=== PATIENT | female | born 1955 | race Caucasian/White ===

== ENCOUNTER → 2016-12-29 | Outpatient (CLI) | payer OTHER ==
[2016-12-29 08:42] LABS: ABSOLUTE BASOPHILS # (AUTO) 0.1 10^3/uL (0.0-0.2); ABSOLUTE EOSINOPHILS # (AUTO) 0.4 10^3/uL (0.0-0.6); ABSOLUTE LYMPHOCYTES (AUTO) 1.5 10^3/uL (0.5-4.7); ABSOLUTE MONOCYTES (AUTO) 0.4 10^3/uL (0.1-1.4); ABSOLUTE NEUT (AUTO) 3.8 10^3/uL (1.7-8.2); BASOPHILS % (AUTO) 1.2 % (0-2); EOSINOPHILS % (AUTO) 6.1 % (0-6); HEMATOCRIT 41.5 % (36.0-47.0); HEMOGLOBIN 13.6 g/dL (12.0-15.5); HGB HCT DIFFERENCE -0.7; LYMPHOCYTES % (AUTO) 23.8 % (13-45); MEAN CORPUSCULAR HEMOGLOBIN 29.2 pg (27.0-33.4); MEAN CORPUSCULAR HGB CONC 32.8 g/dL (32.0-36.0); MEAN CORPUSCULAR VOLUME 89 fl (80-97); RED BLOOD COUNT 4.66 10^6/uL (3.72-5.28); RED CELL DISTRIBUTION WIDTH 14.4 % (11.5-14.0); SEGMENTED NEUTROPHILS % (AUTO) 61.9 % (42-78); WHITE BLOOD COUNT 6.2 10^3/uL (4.0-10.5)
[2016-12-29 09:06] LABS: ALBUMIN 3.8 g/dL (3.5-5.0); ANION GAP 13 (5-19); BLOOD UREA NITROGEN 30 mg/dL (7-20); CALCIUM 9.4 mg/dL (8.4-10.2); CARBON DIOXIDE 23 mmol/L (22-30); CHLORIDE 106 mmol/L (98-107); CREATININE RESULT 1.47 mg/dL (0.52-1.25); GLUCOSE 100 mg/dL (75-110); POTASSIUM 4.5 mmol/L (3.6-5.0); SODIUM 141.8 mmol/L (137-145)
[2016-12-29 09:28] LABS: APPEARANCE,URINE CLEAR; BILIRUBIN,URINE NEGATIVE (NEGATIVE); GLUCOSE, URINE NEGATIVE (NEGATIVE); KETONES,URINE NEGATIVE (NEGATIVE); LEUKOCYTE ESTERASE,URINE MODERATE (NEGATIVE); NITRITE,URINE NEGATIVE (NEGATIVE); PROTEIN,URINE NEGATIVE (NEGATIVE); URINE SPECIFIC GRAVITY 1.008; UROBILINOGEN,URINE NEGATIVE mg/dL (<2.0)
[2016-12-30 10:37] LABS: CREATININE URINE 72.3 mg/dL (Not Estab.); MICROALBUMIN URINE 23.5 ug/mL (Not Estab.)
[2016-12-30 11:59] LABS: VITAMIN D 25-HYDROXY 24.6 ng/mL (30.0-100.0)
== END ==
LOC: OD 07:23
PROVIDERS: ATTEND Internal Medicine Nephrology
DX: I12.9 Hypertensive chronic kidney disease with stage 1 through stage 4 chronic kidney disease, or unspecified chronic kidney disease (principal); N18.3 Chronic kidney disease, stage 3 (moderate); E55.9 Vitamin D deficiency, unspecified
CPT/HCPCS: 36415; 80048; 81001; 82040; 82043; 82306; 82570; 83970; 84100; 85025

== ENCOUNTER → 2017-03-30 | Outpatient (CLI) | payer OTHER ==
[2017-03-30 10:01] LABS: ANION GAP 11 (5-19); BLOOD UREA NITROGEN 34 mg/dL (7-20); CALCIUM 8.8 mg/dL (8.4-10.2); CARBON DIOXIDE 23 mmol/L (22-30); CHLORIDE 108 mmol/L (98-107); CREATININE RESULT 1.31 mg/dL (0.52-1.25); GLUCOSE 107 mg/dL (75-110); PHOSPHORUS 3.9 mg/dL (2.5-4.5); POTASSIUM 4.9 mmol/L (3.6-5.0); SODIUM 141.6 mmol/L (137-145)
== END ==
LOC: OD 08:24
PROVIDERS: ATTEND Internal Medicine Nephrology
DX: I12.9 Hypertensive chronic kidney disease with stage 1 through stage 4 chronic kidney disease, or unspecified chronic kidney disease (principal); N18.3 Chronic kidney disease, stage 3 (moderate); E83.39 Other disorders of phosphorus metabolism
CPT/HCPCS: 36415; 80048; 82306; 84100

== ENCOUNTER 2018-01-21 05:28 | Day surgery (SDC) | payer OTHER ==
--- NOTE | 2018-01-10 13:30 | EKG REPORT ---
SEVERITY:- NORMAL ECG - SINUS RHYTHM : Confirmed by: Karthik Jimenez MD 10-Jan-2018 13:30:05
--- NOTE | 2018-01-10 13:45 | RADIOLOGY REPORT (SQ) ---
EXAM DESCRIPTION: CHEST PA/LATERAL COMPLETED DATE/TIME: 01/10/2018 12:43 pm REASON FOR STUDY: PRE OP COMPARISON: None. EXAM PARAMETERS: NUMBER OF VIEWS: two views TECHNIQUE: Digital Frontal and Lateral radiographic views of the chest acquired. RADIATION DOSE: NA LIMITATIONS: none FINDINGS: LUNGS AND PLEURA: No opacities, masses or pneumothorax. No pleural effusion. MEDIASTINUM AND HILAR STRUCTURES: No masses or contour abnormalities. HEART AND VASCULAR STRUCTURES: Heart normal size. No evidence for failure. BONES: No acute findings. HARDWARE: None in the chest. OTHER: No other significant finding. IMPRESSION: NO SIGNIFICANT RADIOGRAPHIC FINDING IN THE CHEST. TECHNICAL DOCUMENTATION: JOB ID: [id number]- All Rights Reserved Reading location - IP/workstation name: [email or web address]
[~2018-01-21 05:28] MED LIST: BUPIVACAINE INJ/PF LIPOSOME/PF 266 MG/20 ML SDV IJ PRN; CLINDAMYCIN 600 MG/D5W RTU 600 MG/50 ML RTUPB IV ONE; IBUPROFEN 800 MG/NS 250 ML IV PRN; LACTATED RINGERS 1000 ML IV PRN; LANSOPRAZOLE 15 MG TAB.RAP.DR PO PRN; LIDOCAINE 0.5% INJ-PF (5 MG/ML) 50 ML SDV SUBCUT PRN; OXYCODONE HCL SR 10 MG TABLET PO PRN; VANCOMYCIN HCL 1,000 MG in DEXTROSE 5%-WATER 250 ML IV PRN
[2018-01-21] MEDS ORDERED: TETRACAINE HCL/PF 20MG/2ML AMPULE (SPINAL) ONE (06:58)
[2018-01-21] MEDS ORDERED: THROMBIN (BOVINE) TOPICAL 20000 UNIT VIAL ONE (07:11)
[2018-01-21] MEDS ORDERED: THROMBIN (BOVINE) 5000 UNIT EPITAXIS KIT ONE (07:11)
[2018-01-21] MEDS ORDERED: BUPIVACAINE INJ/PF LIPOSOME/PF 266 MG/20 ML SDV ONE (07:12)
[2018-01-21] MEDS ORDERED: ALBUTEROL SULFATE 0.083% NEB 2.5 MG/3 ML AMPUL NEB ONE (07:18)
[2018-01-21] MEDS ORDERED: DIPHENHYDRAMINE HCL 50 MG/ML VIAL IV PRN ×2 (08:21→08:32)
[2018-01-21] MEDS ORDERED: ONDANSETRON HCL INJ/PF 4 MG/2 ML SDV IV PRN ×3 (08:21→14:30)
[2018-01-21] MEDS ORDERED: FENTANYL CITRATE INJ/PF 100 MCG/2 ML AMPUL IV PRN ×3 (08:21)
[2018-01-21] MEDS ORDERED: PROMETHAZINE HCL INJ 25 MG/1 ML VIAL IV PRN ×2 (08:21)
[2018-01-21] MEDS ORDERED: MEPERIDINE HCL/PF INJ 25 MG/1 ML DISP.SYRIN IV PRN (08:21)
[2018-01-21] MEDS ORDERED: ACETAMINOPHEN 325 MG TABLET PO PRN (08:32)
[2018-01-21] MEDS ORDERED: ZOLPIDEM TARTRATE 5 MG TABLET PO PRN (08:32)
[2018-01-21] MEDS ORDERED: RINGERS SOLUTION,LACTATED 1,000 ML IV PRN (08:32)
[2018-01-21] MEDS ORDERED: ONDANSETRON 4 MG TAB.RAPDIS PO PRN ×2 (08:32→14:30)
[2018-01-21] MEDS ORDERED: MORPHINE SULFATE 10 MG/ML INJ IV PRN ×3 (08:32)
[2018-01-21] MEDS ORDERED: MORPHINE SULFATE 10 MG/ML INJ IM PRN (08:32)
[2018-01-21] MEDS ORDERED: MAG HYDROX/AL HYDROX/SIMETH SUSP 30 ML UDCUP PO PRN (08:32)
--- NOTE | 2018-01-21 08:39 | Operative Report ---
Operative Report DATE OF SURGERY: 01/21/18 PREOPERATIVE DIAGNOSIS: Right knee arthritis OPERATION: Right knee arthroplasty SURGEON: YANG ELNNON ANESTHESIA: Spinal TISSUE REMOVED OR ALTERED: Bone to pathology ESTIMATED BLOOD LOSS: 100 PROCEDURE: Implants used: Femur: Rizwana triathlon size 4 CR femur Tibia: 4 tibia Tibial liner: 11 mm CS insert Patella: 35 mm oval patella Procedure with the patient supine on the operating table the right the limb is prepped and draped in a sterile fashion. The limb was elevated for exsanguination and the tourniquet inflated to 280 torr. The patient has had a previous lateral parapatellar retinacular incision for a patella realignment procedure in the distant past. The same incision is accessed to prevent any potential skin necrosis. A large subcutaneous dissection was then performed to expose the medial parapatellar retinaculum and a medial parapatellar retinacular incision is then made.. Access is gained to the femoral canal through the intercondylar notch. Intramedullary alignment instrumentation used to resect 10 mm of distal femur in 5 of valgus. Sizing guide indicated a size 4 femur. Appropriate cutting jig is then used to fashion anterior posterior and chamfer cuts. A trial reduction femurs performed and this is judged to be adequate. Attention was next turned to the tibia. Using an extra medullary alignment system 11 millimeters was resected off the lateral tibial plateau to accommodate for medial plateau bone loss. This is sized to a size 4 tibia. A trial reduction was now performed with a for femur and a for tibia using a 11 millimeters spacer. It is full extension and central patellofemoral tracking. The articular surface the patella was next resected using an oscillating saw. All trial implants were removed. Polymethylmethacrylate is mixed and used to cement the above implants in place. On adequate curing the cement excess cement was removed the tourniquet was deflated hemostasis obtained the wound is then closed in layers using interrupted Vicryl followed by donna. A sterile compressive dressing was applied and the patient returned to recovery room in satisfactory condition.
[2018-01-21] MEDS: FENTANYL CITRATE INJ/PF 100 MCG/2 ML AMPUL ONE ×2 (09:20→09:30)
--- NOTE | 2018-01-21 09:26 | RADIOLOGY REPORT (SQ) ---
EXAM DESCRIPTION: KNEE RIGHT 2 VIEWS COMPLETED DATE/TIME: 01/21/2018 9:17 am REASON FOR STUDY: Post OP -Long Cassette in PACU M17.11 UNILATERAL PRIMARY OSTEOARTHRITIS, RIGHT KN EE COMPARISON: None. NUMBER OF VIEWS: Two views TECHNIQUE: Portable Digital radiographic images of the right knee post-procedure. LIMITATIONS: None. FINDINGS: BONES: No worrisome or unexpected findings post-procedure. DEVICE: Right total knee replacement with patellar resurfacing and re- attachment of the patellar ten don distally. SOFT TISSUES: No worrisome findings. Expected postoperative soft tissue changes. IMPRESSION: SATISFACTORY POSTOPERATIVE RIGHT KNEE. TECHNICAL DOCUMENTATION: JOB ID: [id number] [employer]- All Rights Reserved Reading location - IP/workstation name: [email or web address]
[2018-01-21] MEDS ORDERED: (PENDING PHARMACY ID) (Irbesartan [Avapro] 300 MG) PO SCH (10:00)
[2018-01-21] MEDS ORDERED: LEVOTHYROXINE SODIUM 0.025 MG TABLET PO SCH (10:00)
[2018-01-21] MEDS ORDERED: TRANEXAMIC ACID INJ/PF 1,000 MG/10 ML SDV IV ONE (10:30)
[2018-01-21] MEDS: AMLODIPINE BESYLATE 10 MG TABLET PO SCH (11:09)
[2018-01-21] MEDS: MONTELUKAST SODIUM 10 MG TABLET PO SCH (11:19)
[2018-01-21] MEDS: OXYCODONE HCL SR 10 MG TABLET PO SCH ×2 (11:20→21:54)
[2018-01-21] MEDS: LORAZEPAM 1 MG TABLET PO SCH (11:20)
[2018-01-21] MEDS: SENNOSIDES/DOCUSATE 8.6-50 MG 1 EACH TABLET PO SCH ×2 (11:21→17:05)
[2018-01-21] MEDS: FEBUXOSTAT 80 MG TABLET PO SCH (11:21)
[2018-01-21] MEDS: LOSARTAN POTASSIUM 50 MG TABLET PO SCH (11:21)
[2018-01-21] MEDS: CHLORTHALIDONE 25 MG TABLET PO SCH (11:21)
[2018-01-21] MEDS: PRENATAL VITAMIN W DHA CAPSULE PO SCH (11:21)
[2018-01-21] MEDS ORDERED: PHENYLEPHRINE HCL INJ/PF 10 MG/1 ML SDV ONE (11:22)
[2018-01-21] MEDS: IBUPROFEN 800 MG in NORMAL SALINE 250 ML IV SCH ×2 (15:48→21:59)
[2018-01-21] MEDS ORDERED: VANCOMYCIN HCL 1,000 MG in DEXTROSE 5%-WATER 250 ML IV ONE (20:32)
[2018-01-21] MEDS ORDERED: TRAZODONE HCL 50 MG TABLET PO SCH (22:00)
[2018-01-22] MEDS: OXYCODONE HCL IR 5 MG TABLET PO PRN ×2 (01:40→07:54)
[2018-01-22] MEDS: IBUPROFEN 800 MG in NORMAL SALINE 250 ML IV SCH ×2 (05:23→13:09)
[2018-01-22] MEDS ORDERED: LANSOPRAZOLE 30 MG TAB.RAP.DR PO SCH (06:00)
[2018-01-22] MEDS ORDERED: LEVOTHYROXINE SODIUM 0.025 MG TABLET PO SCH (06:00)
[2018-01-22 07:16] LABS: HEMATOCRIT 29.4 % (36.0-47.0); HEMOGLOBIN 9.9 g/dL (12.0-15.5); MEAN CORPUSCULAR HEMOGLOBIN 30.5 pg (27.0-33.4); MEAN CORPUSCULAR HGB CONC 33.6 g/dL (32.0-36.0); MEAN CORPUSCULAR VOLUME 91 fl (80-97); PLATELET COUNT 206 10^3/uL (150-450); RED BLOOD COUNT 3.25 10^6/uL (3.72-5.28); RED CELL DISTRIBUTION WIDTH 13.9 % (11.5-14.0); WHITE BLOOD COUNT 10.2 10^3/uL (4.0-10.5)
--- NOTE | 2018-01-22 07:19 | PDOC PROGRESS REPORT ---
Subjective Progress Note for:: 01/22/18 Reason For Visit: M17.11 UNILATERAL PRIMARY OSTEOARTHRITIS, RIGHT KN 62-year-old white female postop day 1 from right knee arthroplasty. Limited progress with physical therapy yesterday secondary to prolonged spinal anesthetic. Physical Exam Vital Signs: Temp Pulse Resp BP Pulse Ox 36.4 C 81 16 129/63 H 99 01/21/18 19:24 01/21/18 19:24 01/21/18 19:24 01/21/18 19:24 01/21/18 19:24 Intake & Output 01/21/18 01/22/18 01/23/18 06:59 06:59 06:59 Intake Total 0 6336 Output Total 4050 Balance 0 2286 Weight 113.4 kg 123.7 kg General appearance: PRESENT: no acute distress Head exam: PRESENT: normocephalic Respiratory exam: PRESENT: unlabored Cardiovascular exam: PRESENT: RRR Pulses: PRESENT: +1 pedal pulses bilateral Vascular exam: PRESENT: normal capillary refill GI/Abdominal exam: PRESENT: soft Rectal exam: PRESENT: deferred Extremities exam: PRESENT: other - Right knee dressing change today. Wound is well approximated. Scant serosanguineous drainage. Distal neurovascular examination is intact. Neurological exam: PRESENT: alert, awake, oriented to person, oriented to place , oriented to time, oriented to situation. ABSENT: motor sensory deficit Psychiatric exam: PRESENT: appropriate affect, normal mood. ABSENT: homicidal ideation, suicidal ideation Skin exam: PRESENT: dry, intact, warm. ABSENT: cyanosis, rash Results Impressions: Chest X-Ray 01/10/18 12:25 IMPRESSION: NO SIGNIFICANT RADIOGRAPHIC FINDING IN THE CHEST. Knee X-Ray 01/21/18 08:34 IMPRESSION: SATISFACTORY POSTOPERATIVE RIGHT KNEE. Status: Imported from PACS Assessment & Plan - Diagnosis (1) Arthritis of right knee Is this a current diagnosis for this admission?: Yes Plan: 62-year-old female postop day 1 right knee arthroplasty. Uneventful postoperative course other than the prolonged spinal anesthetic secondary to tetracaine and the absence of significant progress with physical therapy yesterday because of this. Patient will be seen by physical therapy today and if she obtains satisfactory functional status to allow her to be discharged home with home health services that can happen later today. At this point she does not have the functional capacity be considered for discharge. - Time Time Spent with patient: 15-24 minutes Anticipated discharge: Home with Homehealth Within: Other
[2018-01-22 07:28] LABS: ANION GAP 16 (5-19); BLOOD UREA NITROGEN 37 mg/dL (7-20); CALCIUM 8.8 mg/dL (8.4-10.2); CARBON DIOXIDE 18 mmol/L (22-30); CHLORIDE 105 mmol/L (98-107); GLUCOSE 129 mg/dL (75-110); SODIUM 138.9 mmol/L (137-145)
[2018-01-22] MEDS: PRENATAL VITAMIN W DHA CAPSULE PO SCH (10:39)
[2018-01-22] MEDS: FEBUXOSTAT 80 MG TABLET PO SCH (10:41)
[2018-01-22] MEDS: MONTELUKAST SODIUM 10 MG TABLET PO SCH (10:42)
[2018-01-22] MEDS: LORAZEPAM 1 MG TABLET PO SCH (10:42)
[2018-01-22] MEDS: OXYCODONE HCL SR 10 MG TABLET PO SCH (10:43)
[2018-01-22] MEDS: AMLODIPINE BESYLATE 10 MG TABLET PO SCH (10:43)
[2018-01-22] MEDS: LOSARTAN POTASSIUM 50 MG TABLET PO SCH (10:50)
[2018-01-22] MEDS: SENNOSIDES/DOCUSATE 8.6-50 MG 1 EACH TABLET PO SCH (10:50)
[2018-01-22] MEDS: CHLORTHALIDONE 25 MG TABLET PO SCH (13:09)
[2018-01-22 16:39] VITALS: BP 118/53
--- NOTE | 2018-01-23 07:22 | PDOC DISCHARGE SUMMARY ---
General - Admit/Disc Date/PCP Admission Date/Primary Care Provider: LÁZARO BROWNMITZI Discharge Date: 01/22/18 - Discharge Diagnosis (1) Arthritis of right knee Is this a current diagnosis for this admission?: Yes - Additional Information Discharge Activity: Activity As Tolerated, Balance Activity w/Rest, No Driving, No tub bath Home Medications: Albuterol Sulfate [Proair HFA] 1 puff IN ASDIR PRN 01/08/18 Amlodipine Besylate 10 mg PO DAILY 01/08/18 Budesonide/Formoterol Fumarate [Symbicort HFA 160-4.5 mcg Inhaler 6 gm] 2 puff IN BID 01/08/18 Chlorthalidone [Chlorthalidone 25 mg Tablet] 25 mg PO DAILY 01/08/18 Febuxostat [Uloric 80 mg Tablet] 80 mg PO DAILY 01/08/18 Irbesartan [Avapro] 300 mg PO DAILY 01/08/18 Levothyroxine Sodium [Synthroid 0.025 mg Tablet] 25 mcg PO DAILY 01/08/18 Lorazepam 1 mg PO DAILY 01/08/18 Montelukast Sodium [Singulair 10 mg Tablet] 10 mg PO DAILY 01/08/18 Tramadol HCl/Acetaminophen [Tramadol-Acetaminophn 37.5-325] 1 tab PO TID Trazodone HCl [Desyrel 50 mg Tablet] 50 mg PO QHS 01/08/18 History of Present Illness History of Present Illness: MONROE SAUCEDO is a 62 year old female status post bilateral patellofemoral realignment procedures in the distant past now with progressive bilateral knee pain and functional disability secondary osteoarthritis. Patient is admitted for elective right knee arthroplasty. Hospital Course Hospital Course: Patient is admitted through the operating room where she undergoes moderately complicated right knee arthroplasty because previous surgical incisions. She tolerates the procedure without undue complication but has a prolonged spinal anesthetic which precludes meaningful participation with physical therapy on the day of surgery. She seen by physical therapy the second day and makes modest progress. Because of her insurance status she is not approved for inpatient stay and her hospitalization continues on an outpatient basis with the necessity for discharge prior to midnight. This was appealed by the surgeon and appear to be her phone call which was scheduled for 1:00 on Sunday did not occur. Physical Exam Vital Signs: Temp Pulse Resp BP Pulse Ox 37.7 C 89 16 118/53 L 99 01/22/18 17:04 01/22/18 17:04 01/22/18 17:04 01/22/18 17:04 01/22/18 17:04 Intake & Output 01/22/18 01/23/18 01/24/18 06:59 06:59 06:59 Intake Total 6336 676 Output Total 4050 600 Balance 2286 76 Weight 123.7 kg General appearance: PRESENT: no acute distress, mild distress Head exam: PRESENT: normocephalic Respiratory exam: PRESENT: unlabored Cardiovascular exam: PRESENT: RRR Pulses: PRESENT: +1 pedal pulses bilateral Vascular exam: PRESENT: normal capillary refill GI/Abdominal exam: PRESENT: soft Rectal exam: PRESENT: deferred Extremities exam: PRESENT: other Musculoskeletal exam: PRESENT: other - Right knee dressing clean dry and intact Neurological exam: PRESENT: alert, awake, oriented to person, oriented to place , oriented to time, oriented to situation. ABSENT: motor sensory deficit Psychiatric exam: PRESENT: appropriate affect, normal mood. ABSENT: homicidal ideation, suicidal ideation Skin exam: PRESENT: dry, intact, warm. ABSENT: cyanosis, rash Results Laboratory Results: 01/22/18 05:59 01/22/18 05:59 01/22/18 05:59 Sodium 138.9 Potassium 5.0 Chloride 105 Carbon Dioxide 18 L Anion Gap 16 BUN 37 H Creatinine 1.50 H Est GFR ( Amer) 42 L Est GFR (Non-Af Amer) 35 L Glucose 129 H Calcium 8.8 Impressions: Chest X-Ray 01/10/18 12:25 IMPRESSION: NO SIGNIFICANT RADIOGRAPHIC FINDING IN THE CHEST. Knee X-Ray 01/21/18 08:34 IMPRESSION: SATISFACTORY POSTOPERATIVE RIGHT KNEE. Status: Imported from PACS Qualifiers - * PATIENT BEING DISCHARGED WITH ANY OF THE FOLLOWING DIAGNOSIS: No VTE patient discharged on overlapping Therapy?: Yes Plan Discharge Plan: Patient to be discharged home with home health services. Follow-up with Dr. Soy Buchanan [place] for surgery in 2 weeks for staple removal.
== END 2018-01-22 19:25 | disposition home health service (06) ==
LOC: OROUT 05:28 → EDSTATUS 07:30 → 4S 10:35 → OROUT 01-22 19:25
PROVIDERS: ATTEND Orthopaedic Surgery
DX: M17.11 Unilateral primary osteoarthritis, right knee (principal); I12.9 Hypertensive chronic kidney disease with stage 1 through stage 4 chronic kidney disease, or unspecified chronic kidney disease; N18.3 Chronic kidney disease, stage 3 (moderate); J45.909 Unspecified asthma, uncomplicated; R01.1 Cardiac murmur, unspecified; Z88.0 Allergy status to penicillin; Z88.2 Allergy status to sulfonamides; Z88.5 Allergy status to narcotic agent; Z88.6 Allergy status to analgesic agent; Z79.899 Other long term (current) drug therapy; Z79.891 Long term (current) use of opiate analgesic; Z79.51 Long term (current) use of inhaled steroids
CPT/HCPCS: 93005; 36415; 84132; 85027; 80048; 88305 ×2; 88311; 71046; 73560; 94799; 93010; 97530 ×2; 97110 ×2; 97116; 97163; 97535; 97167; 27446; C2625; J2250; J3490 ×10; J1100; J3010; J2370; J2405; J7060; J7050; J2704; J3370; J0131; C9290; J1741; 01402; C1713; C1776

== ENCOUNTER → 2018-04-26 | Outpatient (CLI) | payer OTHER ==
[2018-04-26 17:33] LABS: ALANINE AMINOTRANSFERASE 32 U/L (9-52); ALBUMIN 4.1 g/dL (3.5-5.0); ALKALINE PHOSPHATASE 92 U/L (38-126); ANION GAP 14 (5-19); ASPARTATE AMINO TRANSFERASE 27 U/L (14-36); BILIRUBIN,DIRECT 0.4 mg/dL (0.0-0.4); BILIRUBIN,TOTAL 0.5 mg/dL (0.2-1.3); BLOOD UREA NITROGEN 44 mg/dL (7-20); CALCIUM 9.4 mg/dL (8.4-10.2); CARBON DIOXIDE 23 mmol/L (22-30); CHLORIDE 106 mmol/L (98-107); GLUCOSE 90 mg/dL (75-110); POTASSIUM 4.6 mmol/L (3.6-5.0); SODIUM 142.5 mmol/L (137-145); TOTAL PROTEIN 7.9 g/dL (6.3-8.2)
== END ==
LOC: OD 15:47
PROVIDERS: ATTEND Internal Medicine Geriatric Medicine
DX: E78.5 Hyperlipidemia, unspecified (principal)
CPT/HCPCS: 36415; 80053